=== PATIENT | male | born 1995 ===

== ENCOUNTER → 2018-05-27 | Outpatient (CLI) | payer OTHER ==
[2018-05-27 19:21] LABS: CHOL/HDL RATIO 5.1; Cholesterol 200 mg/dL (50-200); HDL Cholesterol 39 mg/dL (>39); LDL/HDL RATIO 3.5; Low Density Lipoprotein Chol 135 mg/dL (0-110); Triglycerides 128 mg/dL (30-140); Very Low Density Lipoprot Chol 25 mg/dL (6-28)
== END ==
LOC: LAB 12:45 → LAB SHORT 12:45
PROVIDERS: Nurse Practitioner Family
DX: Z00.00 Encounter for general adult medical examination without abnormal findings (principal)
CPT/HCPCS: 80061